=== PATIENT | male | born 1975 | race Two or more races ===

== ENCOUNTER 2022-12-24 12:15 | Inpatient (IN) | payer OTHER ==
[~2022-12-24] VITALS: Ht 177.8 cm; Wt 79.4 kg
[2022-12-31] MEDS ORDERED: LEVSIN/SL0.125 MG SL (09:02)
[2022-12-31] MEDS ORDERED: NEURONTIN300 MG PO (09:02)
[2022-12-31] MEDS ORDERED: INTESTINEX680 M1 PO (09:02)
== END 2022-12-31 11:23 | disposition home or self-care (01) | DRG 330 ==
LOC: O/R 12-27 05:20 → SURH 12-27 10:41
PROVIDERS: ADMIT Surgery; ATTEND Surgery
PROC: 0DBP4ZZ Excision of Rectum, Percutaneous Endoscopic Approach (ICD-10-PCS; 2022-12-27)
PROC: 07BB4ZZ Excision of Mesenteric Lymphatic, Percutaneous Endoscopic Approach (ICD-10-PCS; 2022-12-27)
PROC: 0DJD8ZZ Inspection of Lower Intestinal Tract, Via Natural or Artificial Opening Endoscopic (ICD-10-PCS; 2022-12-27)
PROC: 0DTN4ZZ Resection of Sigmoid Colon, Percutaneous Endoscopic Approach (ICD-10-PCS; principal; 2022-12-27 10:45)
DX: C18.7 Malignant neoplasm of sigmoid colon (principal); K62.5 Hemorrhage of anus and rectum; R59.0 Localized enlarged lymph nodes; K64.8 Other hemorrhoids; K62.89 Other specified diseases of anus and rectum

== ENCOUNTER 2023-01-23 06:43 | Day surgery (SDC) | payer OTHER ==
[~2023-01-23 06:43] MED LIST: ANTIFUNGAL113 GM TOP; INTESTINEX680 M1 PO; LEVSIN/SL0.125 MG SL; NEURONTIN300 MG PO
[2023-01-23] MEDS ORDERED: TRAMADOL HCL50 MG PO (14:01)
== END 2023-01-23 15:10 | disposition home or self-care (01) ==
LOC: CIR.AMB 06:43
PROVIDERS: ATTEND Surgery
DX: C18.7 Malignant neoplasm of sigmoid colon (principal); R59.0 Localized enlarged lymph nodes; Z88.2 Allergy status to sulfonamides; Z20.822 Contact with and (suspected) exposure to COVID-19
CPT/HCPCS: 36561; 77001; C1788

== ENCOUNTER → 2023-02-19 | Emergency (ER) | payer OTHER ==
[~2023-02-19] MED LIST changes: +TRAMADOL HCL50 MG PO
== END | disposition left against medical advice (07) ==
LOC: ER 20:09
DX: Z53.21 Procedure and treatment not carried out due to patient leaving prior to being seen by health care provider (principal)

== ENCOUNTER 2023-11-20 06:00 | Day surgery (SDC) | payer OTHER ==
[2023-11-20] MEDS ORDERED: TRAMADOL HCL50 MG PO (09:39)
== END 2023-11-20 11:55 | disposition home or self-care (01) ==
LOC: CIR.AMB 06:00
PROVIDERS: ATTEND Surgery
DX: C18.7 Malignant neoplasm of sigmoid colon (principal); Z88.2 Allergy status to sulfonamides; Z88.1 Allergy status to other antibiotic agents